=== PATIENT | female | born 1960 | race African-American/Black ===

== ENCOUNTER 2017-11-27 12:01 | Inpatient (IN) ==
[2017-11-27] MEDS ORDERED: Ketorolac Inj 30 MG/ML (IVP) Vial IV.PUSH ONE (13:24)
[2017-11-27] MEDS ORDERED: Sod Chloride 0.9% Inj 1,000 ML IV.SIG ONE (13:24)
--- NOTE | 2017-11-27 13:53 | ED ---
HPI General Chief complaint: Weakness Stated complaint: Back/Leg Pain and weakness Time Seen by Provider: 11/27/17 13:16 Source: patient Mode of arrival: ambulatory Limitations: no limitations History of Present Illness HPI Narrative: 57-year-old female presents to the emergency room for evaluation of generalized weakness that started 3 days ago. States she feels like she has no energy. She also has associated left lower back pain that radiates down her left lower extremity. States back pain is chronic. She has not been taking anything for her symptoms. Patient also complains of intermittent left-sided chest pain that she last experienced this morning. She denies upper or lower extremity paresthesias, saddle anesthesia, or loss of bowel bladder control. She has history of hypertension and anemia. She was started on a diuretic a few days ago, just prior to onset of weakness patient does not remember the name of the diuretic. She does smoke cigarettes. MD Complaint: generalized weakness and lack of energy Onset (ago): day(s) Duration: constant Location: generalized Migration: none Severity: moderate Relieving factors: none Exacerbating factors: movement and exertion Context: new medication Associated symptoms: chest pain Related Data Home Medications Medication Instructions Recorded Confirmed lisinopril 20 mg PO DAILY 11/27/17 11/27/17 Allergies Allergy/AdvReac Type Severity Reaction Status Date / Time No Known Allergies Allergy Verified 11/27/17 13:36 Review of Systems ROS: all other systems reviewed are negative [facility] Medical History Medical History Anemia (Acute) HTN (hypertension) (Acute) Social History Social History Substance History: No History of Abuse Second Hand Smoke Exposure: No Smoking Status: Never smoker How Often Do You Have a Drink Containing Alcohol: Never Immunization History Tetanus Immunization: Unsure Exam Narrative Exam Narrative: GENERAL: Well-nourished, well-developed female in no acute distress. Afebrile. Ambulatory. SKIN: Focused skin assessment warm/dry. HEAD: Normocephalic. EYES: No scleral icterus. No injection or drainage. NECK: Supple, trachea midline. No JVD or lymphadenopathy. CARDIOVASCULAR: Regular rate and rhythm without murmurs, gallops, or rubs. RESPIRATORY: Breath sounds equal bilaterally. No accessory muscle use. GASTROINTESTINAL: Abdomen soft, non-tender, nondistended. MUSCULOSKELETAL: No cyanosis, or edema. BACK: Nontender without obvious deformity. No CVA tenderness. Tenderness to palpation of the left lower lumbar region. Positive straight leg raise. Course Initial Documented Vital Signs Temperature 98 F 11/27/17 12:04 Pulse Rate 79 11/27/17 12:04 Respiratory Rate 18 11/27/17 12:04 Blood Pressure 111/53 L 11/27/17 12:04 Pulse Oximetry 98 11/27/17 12:04 Last Documented Vital Signs Temperature 98 F 11/27/17 12:04 Pulse Rate 79 11/27/17 12:04 Respiratory Rate 18 11/27/17 12:04 Blood Pressure 111/53 L 11/27/17 12:04 Pulse Oximetry 99 11/27/17 13:24 Medical Decision Making CAMILO Attestation CAMILO supervised visit: Yes Attestation: I, Dr. Elliott, have reviewed the advance practice practitioner's documentation and am in agreement, met with the patient face to face, made the diagnosis, and the medical decision making was done by me. *My assessment and Findings: Electrolyte abnormality vs. ACS vs. anemia vs. dehydration vs. rhabdomyolysis 57yo F with HTN, HLD presents to the ED with c/o generalized weakness and intermittent left sided chest pain for 1 week. Said it is achy and lasts seconds at a time. Moderate severity. Nonradiating. +Nausea. Denies any sob , vomiting, abdominal pain, focal weakness or numbness. 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 +Cig smoker. Denies any significant family history of cardiac disease. Also complains of generalized cramping to me. Will do labs, EKG, CXR and likely admit to chest pain center. She is currently chest pain free. Last episode was this morning. Labs reviewed , no leukocytosis. H/H normal. BUN/creatinine is elevated at 24/2.21. This is new compared to her last BUN/creatinine. But her last BUN/creatinine was from 2007. CPK normal. CXR negative. Will admit for RODOLFO and chest pain work up. MDM Narrative Medical decision making narrative: 57-year-old female presents to the emergency room for evaluation of generalized weakness that started a few days ago. Symptoms started shortly after she was started on the diuretic. Patient also reports intermittent left-sided chest pain that last occurred this morning. She has several risk factors for CAD. IV access established basic labs obtained. Patient given 1 L of fluids and Toradol for exacerbation of acute on chronic sciatica. CBC is unremarkable. CMP only shows elevation of creatinine 2.21. Patient denies any history of kidney failure. Troponin is less than 0.02. EKG was reviewed by my attending physician. Given patient's history of acute kidney injury, she will be admitted. Patient understands and agrees to plan. I spoke to Dr. Allan who agrees to accept this patient to his service. Medical Screen Exam Complete: Yes Emergency Medical Condition: Yes Differential Diagnosis Differential Diagnosis: Weakness, CAD, anemia, electrolyte abnormality, dehydration Lab Data Lab results reviewed: Yes I reviewed the patient's lab results. Result diagrams: 11/27/17 14:20 11/27/17 14:20 Lab Results 11/27/17 11/27/17 11/27/17 Range/Units 14:20 14:20 14:20 WBC 7.9 (4.0-11.0) th/mm3 RBC 4.52 (4.00-5.30) mil/mm3 Hgb 14.4 (11.6-15.3) gm/dL Hct 43.3 (35.0-46.0) % MCV 95.9 (80.0-100.0) fL MCH 32.0 (27.0-34.0) pg MCHC 33.3 (32.0-36.0) % RDW 13.1 (11.6-17.2) % Plt Count 288 (150-450) th/mm3 MPV 8.3 (7.0-11.0) fL Neut % (Auto) 46.5 (16.0-70.0) % Lymph % (Auto) 47.8 H (9.0-44.0) % Harlan % (Auto) 4.3 (0.0-8.0) % Eos % (Auto) 1.0 (0.0-4.0) % Baso % (Auto) 0.4 (0.0-2.0) % Neut # (Auto) 3.7 (1.8-7.7) th/mm3 Lymph # (Auto) 3.8 (1.0-4.8) th/mm3 Harlan # (Auto) 0.3 (0.0-0.9) th/mm3 Eos # (Auto) 0.1 (0.0-0.4) th/mm3 Baso # (Auto) 0.0 (0.0-0.2) th/mm3 WBC Differential . Differential Comment Auto diff final Sodium 137 (136-145) meq/L Potassium 4.3 (3.5-5.1) meq/L Chloride 100 (98-107) meq/L Carbon Dioxide 26.1 (21.0-32.0) meq/L Anion Gap 11 (5-15) meq/L BUN 24 H (7-18) mg/dL Creatinine 2.21 H (0.50-1.00) mg/dL Estimated GFR 27 L (>89) mL/min Random Glucose 127 H (74-106) mg/dL Calcium 9.2 (8.5-10.1) mg/dL Total Bilirubin 0.6 (0.2-1.0) mg/dL AST 18 (15-37) U/L ALT 28 (10-53) U/L Alkaline Phosphatase 62 (45-117) U/L Total Creatine Kinase 88 Cancelled (26-192) U/L Troponin I Less than 0.02 L (0.02-0.05) ng/mL Total Protein 7.7 (6.4-8.2) g/dL Albumin 4.1 (3.4-5.0) g/dL Imaging Data Radiologist's impression: Chest X-Ray 11/27/17 13:49 CONCLUSION: Negative for acute process ECG Data EKG Prior to Arrival: No Attestation: I personally reviewed and interpreted this ECG as follows: Interpretation: NSR 66bpm. Normal axis. HI interval 171ms. LVH. No significant ST elevation or depression. Discharge Plan Discharge Disposition Patient Disposition: 30 Still Patient Discharge Condition Condition: Stable Physicians Team ED Provider: Juliane Elliott ED Midlevel Provider: Prachi Salguero Primary Care Provider: Yoni Vallejo Rxs /Orders / Referrals /Forms Prescriptions: No Action lisinopril 20 mg Tablet 20 mg PO DAILY RF: 0 Status ED Status: With Doctor
--- NOTE | 2017-11-27 14:18 | XR ---
EXAM DATE: 11/27/2017 2:15 PM EDT AGE/SEX: 57 years / Female INDICATIONS: Chest pain. CLINICAL DATA: This is the patient's initial encounter. Patient reports that signs and symptoms have been present for 3 days and indicates a pain score of 7/10. MEDICAL/SURGICAL HISTORY: Hypertension. None. [place] [facility] [place]. . FINDINGS: A single AP view of the chest demonstrates the lungs to be symmetrically aerated without evidence of mass, infiltrate or effusion. The cardiomediastinal contours are unremarkable. Osseous structures a re intact. CONCLUSION: Negative for acute process Electronically signed by: Perry Rios MD 11/27/2017 2:17 PM EDT
[2017-11-27 14:27] LABS: Baso % (Auto) 0.4 % (0.0-2.0); Eos # (Auto) 0.1 th/mm3 (0.0-0.4); Hematocrit 43.3 % (35.0-46.0); Hemoglobin 14.4 gm/dL (11.6-15.3); Lymph # (Auto) 3.8 th/mm3 (1.0-4.8); Lymph % (Auto) 47.8 % (9.0-44.0); Mean Corpuscular HGB Conc 33.3 % (32.0-36.0); Mean Corpuscular Volume 95.9 fL (80.0-100.0); Mean Platelet Volume 8.3 fL (7.0-11.0); Mono # (Auto) 0.3 th/mm3 (0.0-0.9); Mono % (Auto) 4.3 % (0.0-8.0); Neut # (Auto) 3.7 th/mm3 (1.8-7.7); Neut % (Auto) 46.5 % (16.0-70.0); Platelet Count 288 th/mm3 (150-450); Red Blood Count 4.52 mil/mm3 (4.00-5.30); Red Cell Distribution Width 13.1 % (11.6-17.2); White Blood Count 7.9 th/mm3 (4.0-11.0)
[2017-11-27 14:57] LABS: Alanine Aminotransferase 28 U/L (10-53); Albumin 4.1 g/dL (3.4-5.0); Alkaline Phosphatase 62 U/L (45-117); Anion Gap 11 meq/L (5-15); Aspartate Aminotransferase 18 U/L (15-37); Blood Urea Nitrogen 24 mg/dL (7-18); Calcium 9.2 mg/dL (8.5-10.1); Carbon Dioxide 26.1 meq/L (21.0-32.0); Chloride 100 meq/L (98-107); Glomerular Filtration Rate 27 mL/min (>89); Glucose,Random 127 mg/dL (74-106); Sodium 137 meq/L (136-145); Total Protein 7.7 g/dL (6.4-8.2)
[2017-11-27 15:03] LABS: Creatine Kinase 88 U/L (26-192); Potassium 4.3 meq/L (3.5-5.1)
[2017-11-27 16:11] LABS: Bacteria,Urine Rare /hpf; Bilirubin,Urine Negative (Negative); Clarity,Urine Cloudy (Clear); Color,Urine Yellow (Yellw/Straw); Glucose,Urine (UA) Negative (Negative); Hyaline Casts,Urine 137 /lpf (0-3); Leukocyte Esterase,Urine Trace (Negative); Mucus,Urine Few /lpf (Occasional); Nitrite,Urine Negative (Negative); Specific Gravity,Urine 1.012 (1.002-1.035); Squamous Epithelial Cell,Urine 12 /hpf (0-5)
[2017-11-27] MEDS ORDERED: Acetaminophen 325 MG Tablet PO PRN (16:30)
[2017-11-27] MEDS ORDERED: LORazepam 1 MG Tablet PO PRN (16:33)
[2017-11-27] MEDS ORDERED: Haloperidol Inj 5 MG/ML Ampul IV.PUSH PRN (16:33)
--- NOTE | 2017-11-27 16:42 | P.HPIM ---
History of Present Illness Primary Care Physician: [facility] Chief Complaint: Weakness, chest pain History of Present Illness: The patient is a 57-year-old female with past medical history of hypertension and hyperlipidemia who is presenting to the hospital with weakness and chest pain. The patient states that she has felt weak for the past 2-3 days. She says the weakness is generalized. She says she had diarrhea last week that lasted for about 3 days. The diarrhea has resolved. She was nauseous earlier but is currently hungry. She states she has been drinking water. She says she was started on a water pill recently. She denies any pain on urination. The patient says that starting last week she had twinges of left-sided chest pain from time to time. She went to her primary care doctor who performed an EKG which was reportedly normal. The patient does not currently have chest pain at this moment. Discussed with family at the bedside. Inpatient Certification: I certify that the inpatient services were ordered in accordance with Medicare regulations governing the order. This includes certification that hospital inpatient services are reasonable and necessary and in the case of services not specified as inpatient-only under 42 CFR 419.22(n), that they are appropriately provided as inpatient services in accordance to with the 2-midnight benchmark under 43 CFR 412.3(e) Estimated Total Length of Stay (Days): 2 Plans for Post Hospital Care: Home Review of Systems All other systems reviewed negative except as stated in HPI [facility] - History History Provided By: Patient - Medical History Medical History: Medical History (Last Updated 11/27/17 @ 16:39 by Dalton Allan DO) Anxiety Depression HTN (hypertension) Hyperlipidemia - Surgical History Surgical History: Surgical History (Last Updated 11/27/17 @ 16:39 by Dalton Allan DO) History of partial hysterectomy - Family History Family History: Family History (Last Updated 11/27/17 @ 16:40 by Dalton Allan DO) Other Pulmonary embolism - Tobacco History Second Hand Smoke Exposure: No Tobacco Use In Past 30 Days: Yes Smoking Status: Current every day smoker (The patient smokes half a pack daily) - Alcohol History How Often Do You Have a Drink Containing Alcohol: 4 or more times a week - Immunization History Tetanus Immunization: Unsure Medications and Allergies Active Medications: Active Medications Acetaminophen (Tylenol) 650 mg PO Q4H PRN PRN Reason: Temp > 100.4 Alprazolam (Xanax) 0.5 mg PO Q8H PRN PRN Reason: ANXIETY Flumazenil (Romazecon Inj) 0.2 mg IV.PUSH Q1M PRN PRN Reason: OVERSEDATION Haloperidol Lactate (Haldol Inj) 1 mg IV.PUSH Q15M PRN PRN Reason: for severe agitation Heparin Sodium (Porcine) (Heparin Inj) 5,000 units SQ Q8H DUNG Sodium Chloride (Ns Inj) 1,000 mls @ 100 mls/hr IV.CONT .Q10H DUNG Lorazepam (Ativan) 2 mg PO Q2H PRN PRN Reason: for CIWA 11-14 Lorazepam (Ativan Inj) 2 mg IV.PUSH Q1H PRN PRN Reason: for CIWA 15-20 Lorazepam (Ativan Inj) 2 mg IV.PUSH Q15M PRN PRN Reason: for CIWA > 20 Lorazepam (Ativan) 1 mg PO Q4H PRN PRN Reason: for CIWA 8-10 Sodium Chloride (Ns Flush) 2 ml IV.FLUSH PRN PRN PRN Reason: FLUSH AFTER USING IV ACCESS Allergies Allergy/AdvReac Type Severity Reaction Status Date / Time No Known Allergies Allergy Verified 11/27/17 13:36 Home Medications Medication Instructions Recorded Confirmed Type lisinopril 20 mg PO DAILY 11/27/17 11/27/17 History Exam Vital signs: Vital Signs 11/27/17 12:04 11/27/17 13:24 11/27/17 16:26 Temperature 98 F 98.7 F Pulse Rate 79 69 Respiratory Rate 18 18 Blood Pressure 111/53 L 120/77 Pulse Oximetry 98 99 96 Intake & Output 11/26/17 11/27/17 11/27/17 18:59 06:59 18:59 Weight 68.039 kg Narrative: GENERAL: Well-nourished, well-developed female in no acute distress. SKIN: Focused skin assessment warm/dry. HEAD: Normocephalic. EYES: No scleral icterus. No injection or drainage. NECK: Supple, trachea midline. No JVD or lymphadenopathy. CARDIOVASCULAR: Regular rate and rhythm without murmurs, gallops, or rubs. RESPIRATORY: Breath sounds equal bilaterally. No accessory muscle use. GASTROINTESTINAL: Abdomen soft, non-tender, nondistended. MUSCULOSKELETAL: Left chest wall pain reproducible upon palpation. No cyanosis, or edema. NEURO: No gross deficits. Results - Labs CBC & Chem 7: 11/27/17 14:20 11/27/17 14:20 Labs: Short CBC 11/27/17 Range/Units 14:20 WBC 7.9 (4.0-11.0) th/mm3 Hgb 14.4 (11.6-15.3) gm/dL Hct 43.3 (35.0-46.0) % Plt Count 288 (150-450) th/mm3 BMP 11/27/17 14:20 Sodium 137 Potassium 4.3 Chloride 100 Carbon Dioxide 26.1 BUN 24 H Creatinine 2.21 H Calcium 9.2 Cardiac Enzymes 11/27/17 11/27/17 Range/Units 14:20 14:20 Total Creatine Kinase 88 Cancelled (26-192) U/L Troponin I Less than 0.02 L (0.02-0.05) ng/mL Liver Function 11/27/17 Range/Units 14:20 Total Bilirubin 0.6 (0.2-1.0) mg/dL AST 18 (15-37) U/L ALT 28 (10-53) U/L Alkaline Phosphatase 62 (45-117) U/L Albumin 4.1 (3.4-5.0) g/dL Urine 11/27/17 Range/Units 15:30 Urine Color Yellow (Yellw/Straw) Urine Clarity Cloudy H (Clear) Urine pH 5.0 (5.0-8.5) Ur Specific [place] 1.012 (1.002-1.035) Urine Protein Negative (Neg-Trace) mg/dL Urine Glucose (UA) Negative (Negative) mg/dL - Imaging Impressions Chest X-Ray 11/27/17 13:49 CONCLUSION: Negative for acute process Caprini VTE Risk Assessment Caprini VTE Risk Assessment: Moderate/High Risk (score >= 2) Caprini Risk Assessment Model: Point Value = 1 Point Value = 2 Point Value = 3 Point Value = 5 Age 41-60 Minor surgery BMI > 25 kg/m2 Swollen legs Varicose veins or History of unexplained or recurrent spontaneous Oral contraceptives or hormone replacement Sepsis (< 1 month) Serious lung disease, including pneumonia (< 1 month) Abnormal pulmonary function Acute myocardial infarction Congestive heart failure (< 1 month) History of inflammatory bowel disease Medical patient at bed rest Age 61-74 Arthroscopic surgery Major open surgery (> 45 min) Laparoscopic surgery (> 45 min) Malignancy Confined to bed (> 72 hours) Immobilizing plaster cast Central venous access Age >= 75 History of VTE Family history of VTE Factor V Leiden Prothrombin [id number] Lupus anticoagulant Anticardiolipin antibodies Elevated serum homocysteine Heparin-induced thrombocytopenia Other congenital or acquired thrombophilia Stroke (< 1 month) Elective arthroplasty Hip, pelvis, or leg fracture Acute spinal cord injury (< 1 month) Prophylaxis Regimen: Total Risk Factor Score Risk Level Prophylaxis Regimen 0-1 Low Early ambulation 2 Moderate Order ONE of the following: *Sequential Compression Device (SCD) *Heparin 5000 units SQ BID 3-4 Higher Order ONE of the following medications: *Heparin 5000 units SQ TID *Enoxaparin/Lovenox 40 mg SQ daily (WT < 150 kg, CrCl > 30 mL/min) *Enoxaparin/Lovenox 30 mg SQ daily (WT < 150 kg, CrCl > 10-29 mL/min) *Enoxaparin/Lovenox 30 mg SQ BID (WT < 150 kg, CrCl > 30 mL/min) AND/OR *Sequential Compression Device (SCD) 5 or more Highest Order ONE of the following medications: *Heparin 5000 units SQ TID (Preferred with Epidurals) *Enoxaparin/Lovenox 40 mg SQ daily (WT < 150 kg, CrCl > 30 mL/min) *Enoxaparin/Lovenox 30 mg SQ daily (WT < 150 kg, CrCl > 10-29 mL/min) *Enoxaparin/Lovenox 30 mg SQ BID (WT < 150 kg, CrCl > 30 mL/min) AND *Sequential Compression Device (SCD) Assessment and Plan - Plan Acute renal failure Likely prerenal. The pt had diarrhea last week. She also is on a diuretic, but is unable to recall which one. She is also on lisinopril. -IVFs. -hold lisinopril and diuretic. -Will need home med list to further evaluate meds that can contribute. -avoid nephrotoxins and follow BMP. Left sided chest pain Reproducible on exam. CXR and initial trop negative. EKG unremarkable. -telemetry. -trend trops. -pain control as needed. Alcohol use The pt endorses drinking beer and vodka but was unable to quantify. -CIWA protocol. -cessation instruction. Nicotine abuse The pt smokes half a pack daily. -cessation instruction. Hyperglycemia Possibly a stress reaction. -follow BMP. PPx: Heparin
[2017-11-27] MEDS: Sod Chloride 0.9% Inj 1,000 ML IV.CONT SCH (19:37)
[2017-11-27] MEDS: Heparin - SQ 10,000 UNITS/ML Vial SQ SCH (19:37)
[2017-11-27] MEDS: ALPRAZolam 0.5 MG Tablet PO PRN (23:41)
[2017-11-28] MEDS: Heparin - SQ 10,000 UNITS/ML Vial SQ SCH ×3 (00:36→16:13)
[2017-11-28] MEDS: Sod Chloride 0.9% Inj 1,000 ML IV.CONT SCH ×2 (05:42→11:35)
[2017-11-28 07:04] LABS: Baso % (Auto) 0.6 % (0.0-2.0); Eos # (Auto) 0.1 th/mm3 (0.0-0.4); Eos % (Auto) 1.8 % (0.0-4.0); Hemoglobin 12.7 gm/dL (11.6-15.3); Lymph % (Auto) 67.4 % (9.0-44.0); Mean Corpuscular HGB Conc 33.4 % (32.0-36.0); Mean Corpuscular Hemoglobin 32.1 pg (27.0-34.0); Mean Corpuscular Volume 96.3 fL (80.0-100.0); Mean Platelet Volume 8.5 fL (7.0-11.0); Mono # (Auto) 0.2 th/mm3 (0.0-0.9); Mono % (Auto) 3.9 % (0.0-8.0); Neut # (Auto) 1.6 th/mm3 (1.8-7.7); Neut % (Auto) 26.3 % (16.0-70.0); Platelet Count 245 th/mm3 (150-450); Red Blood Count 3.95 mil/mm3 (4.00-5.30); White Blood Count 5.9 th/mm3 (4.0-11.0)
[2017-11-28 07:37] LABS: Alanine Aminotransferase 24 U/L (10-53); Albumin 3.3 g/dL (3.4-5.0); Alkaline Phosphatase 59 U/L (45-117); Anion Gap 9 meq/L (5-15); Aspartate Aminotransferase 10 U/L (15-37); Blood Urea Nitrogen 19 mg/dL (7-18); Calcium 8.3 mg/dL (8.5-10.1); Carbon Dioxide 26.6 meq/L (21.0-32.0); Chloride 106 meq/L (98-107); Glomerular Filtration Rate 54 mL/min (>89); Glucose,Random 107 mg/dL (74-106); Potassium 3.7 meq/L (3.5-5.1); Sodium 142 meq/L (136-145); Total Protein 6.3 g/dL (6.4-8.2)
[2017-11-28 08:28] LABS: Eosinophils 2 % (0-4); Lymphocytes 66 % (9-44); Metamyelocytes 1 % (0-1); Monocytes 1 % (0-8); Myelocytes 1 % (0-0); Platelet Estimate Normal (Normal); Platelet Morphology Normal (Normal); RBC Morphology Normal (Normal)
--- NOTE | 2017-11-28 10:08 | P.PNIM ---
Subjective Interval history: Patient seen and examined this morning. Afebrile vital signs stable. No acute events overnight. Patient reports that she is at this time feeling better. Denies any nausea or vomiting. Denies any chest pain or shortness breath. Her flank pain is improving. Her abdominal pain is improving. She is happy about the news that her kidney function has also improved. She is no longer feeling as dehydrated she previously had felt. At this time will continue the IV fluids her BUN and creatinine. Patient is in agreement with the plan of care Physical Exam Vital signs: Vital Signs 11/27/17 12:04 11/27/17 13:24 11/27/17 16:26 Temperature 98 F 98.7 F Pulse Rate 79 69 Respiratory Rate 18 18 Blood Pressure 111/53 L 120/77 Pulse Oximetry 98 99 96 11/27/17 19:40 11/27/17 20:00 11/27/17 21:42 Temperature 98.4 F Pulse Rate 72 Respiratory Rate 18 18 18 Blood Pressure 121/71 Pulse Oximetry 11/28/17 00:00 11/28/17 04:00 11/28/17 08:00 Temperature 97.2 F L 97.1 F L 97.7 F Pulse Rate 69 61 60 Respiratory Rate 18 18 16 Blood Pressure 162/83 H 133/68 147/91 H Pulse Oximetry 99 97 99 11/28/17 09:40 Temperature Pulse Rate Respiratory Rate 16 Blood Pressure Pulse Oximetry Intake & Output 11/27/17 11/28/17 11/28/17 18:59 06:59 18:59 Intake Total 1000 / 1000 600 / 600 Balance 1000 / 1000 600 / 600 Weight 68.039 kg 69.2 kg Intake: IV 1000 / 1000 NS Inj 1,000 ML @ 100 mls/hr IV 1000 / 1000 .CONT .Q10H DUNG Rx#:[id number] Oral 600 / 600 Other: # Voids 1 Date of Last Bowel Movement 11/28/17 # Bowel Movements 1 Weight On Admission 69 kg Narrative: GEN: Well-developed, well-nourished patient. No acute distress. CV: Regular rate and rhythm without obvious murmurs LUNGS: Clear to auscultation bilaterally. Normal respiratory effort. No wheezes , rales, rhonchi. GI: Soft, nontender, nondistended. No palpable masses. Bowel sounds WNL. EXT: No edema. NEURO/PSYCH: Afocal. Awake, alert, and oriented x3. Appropriate insight and judgment. Results - Labs CBC & Chem 7: 11/28/17 05:49 11/28/17 05:49 Laboratory Results - last 24 hr 11/27/17 11/27/17 11/27/17 14:20 14:20 14:20 WBC 7.9 RBC 4.52 Hgb 14.4 Hct 43.3 MCV 95.9 MCH 32.0 MCHC 33.3 RDW 13.1 Plt Count 288 MPV 8.3 Prelim Diff (Auto) Neut % (Auto) 46.5 Lymph % (Auto) 47.8 H Baxter % (Auto) 4.3 Eos % (Auto) 1.0 Baso % (Auto) 0.4 Neut # (Auto) 3.7 Lymph # (Auto) 3.8 Baxter # (Auto) 0.3 Eos # (Auto) 0.1 Baso # (Auto) 0.0 WBC Differential . Seg Neuts % (Manual) Lymphocytes % (Manual) Monocytes % (Manual) Eosinophils % (Manual) Metamyelocytes % (Man) Myelocytes % (Man) Abs Neuts (Manual) Differential Comment Auto diff final Platelet Estimate Platelet Morphology RBC Morphology Sodium 137 Potassium 4.3 Chloride 100 Carbon Dioxide 26.1 Anion Gap 11 BUN 24 H Creatinine 2.21 H Estimated GFR 27 L Random Glucose 127 H Calcium 9.2 Total Bilirubin 0.6 AST 18 ALT 28 Alkaline Phosphatase 62 Total Creatine Kinase 88 Cancelled Troponin I Less than 0.02 L Total Protein 7.7 Albumin 4.1 Urine Color Urine Clarity Urine pH Ur Specific [place] Urine Protein Urine Glucose (UA) Urine Ketones Urine Occult Blood Urine Nitrate Urine Bilirubin Urine Urobilinogen Ur Leukocyte Esterase Urine RBC Urine WBC Ur Squamous Epith Cells Urine Bacteria Hyaline Casts Granular Casts Waxy Casts Urine Mucus Micro UA Comment Ur Microscopic Review Urine Culture Comments 11/27/17 11/27/17 11/28/17 15:30 20:04 05:49 WBC 5.9 RBC 3.95 L Hgb 12.7 Hct 38.0 MCV 96.3 MCH 32.1 MCHC 33.4 RDW 13.0 Plt Count 245 MPV 8.5 Prelim Diff (Auto) Slide review pending Neut % (Auto) 26.3 Lymph % (Auto) 67.4 H Baxter % (Auto) 3.9 Eos % (Auto) 1.8 Baso % (Auto) 0.6 Neut # (Auto) 1.6 L Lymph # (Auto) 4.0 Baxter # (Auto) 0.2 Eos # (Auto) 0.1 Baso # (Auto) 0.0 WBC Differential Manual diff final Seg Neuts % (Manual) 29 Lymphocytes % (Manual) 66 H Monocytes % (Manual) 1 Eosinophils % (Manual) 2 Metamyelocytes % (Man) 1 Myelocytes % (Man) 1 H Abs Neuts (Manual) 1.8 Differential Comment . Platelet Estimate Normal Platelet Morphology Normal RBC Morphology Normal Sodium Potassium Chloride Carbon Dioxide Anion Gap BUN Creatinine Estimated GFR Random Glucose Calcium Total Bilirubin AST ALT Alkaline Phosphatase Total Creatine Kinase Troponin I Less than 0.02 L Total Protein Albumin Urine Color Yellow Urine Clarity Cloudy H Urine pH 5.0 Ur Specific [place] 1.012 Urine Protein Negative Urine Glucose (UA) Negative Urine Ketones Negative Urine Occult Blood Small H Urine Nitrate Negative Urine Bilirubin Negative Urine Urobilinogen Less than 2 Ur Leukocyte Esterase Trace H Urine RBC 2 Urine WBC 3 Ur Squamous Epith Cells 12 Urine Bacteria Rare H Hyaline Casts 137 Granular Casts 1 Waxy Casts 4 Urine Mucus Few H Micro UA Comment Culture not ind Ur Microscopic Review Not Reportable Urine Culture Comments Culture not ind 11/28/17 05:49 WBC RBC Hgb Hct MCV MCH MCHC RDW Plt Count MPV Prelim Diff (Auto) Neut % (Auto) Lymph % (Auto) Baxter % (Auto) Eos % (Auto) Baso % (Auto) Neut # (Auto) Lymph # (Auto) Baxter # (Auto) Eos # (Auto) Baso # (Auto) WBC Differential Seg Neuts % (Manual) Lymphocytes % (Manual) Monocytes % (Manual) Eosinophils % (Manual) Metamyelocytes % (Man) Myelocytes % (Man) Abs Neuts (Manual) Differential Comment Platelet Estimate Platelet Morphology RBC Morphology Sodium 142 Potassium 3.7 Chloride 106 Carbon Dioxide 26.6 Anion Gap 9 BUN 19 H Creatinine 1.23 H Estimated GFR 54 L Random Glucose 107 H Calcium 8.3 L D Total Bilirubin 0.4 AST 10 L ALT 24 Alkaline Phosphatase 59 Total Creatine Kinase Troponin I Less than 0.02 L Total Protein 6.3 L D Albumin 3.3 L D Urine Color Urine Clarity Urine pH Ur Specific [place] Urine Protein Urine Glucose (UA) Urine Ketones Urine Occult Blood Urine Nitrate Urine Bilirubin Urine Urobilinogen Ur Leukocyte Esterase Urine RBC Urine WBC Ur Squamous Epith Cells Urine Bacteria Hyaline Casts Granular Casts Waxy Casts Urine Mucus Micro UA Comment Ur Microscopic Review Urine Culture Comments - Imaging Impressions Chest X-Ray 11/27/17 13:49 CONCLUSION: Negative for acute process Assessment and Plan - Assessment (1) RODOLFO (acute kidney injury) Code(s): N17.9 - Acute kidney failure, unspecified Status: Acute (2) Alcohol abuse Code(s): F10.10 - Alcohol abuse, uncomplicated Status: Acute - Plan Acute renal failure Likely prerenal. The pt had diarrhea last week. She also is on a diuretic, but is unable to recall which one. She is also on lisinopril. -IVFs. -hold lisinopril and diuretic. -Will need home med list to further evaluate meds that can contribute. -avoid nephrotoxins and follow BMP. Left sided chest pain Reproducible on exam. CXR and initial trop negative. EKG unremarkable. -telemetry. -trend trops: Negative -pain control as needed. Alcohol use The pt endorses drinking beer and vodka but was unable to quantify. -CIWA protocol. -cessation instruction. Nicotine abuse The pt smokes half a pack daily. -cessation instruction. -Nicotine patch Hyperglycemia Possibly a stress reaction. -follow BMP. PPx: Heparin Code Status: Full code Discharge Planning: Anticipate discharge home tomorrow
[2017-11-28] MEDS: Tolterodine Tartrate LA 2 MG Capsule PO SCH (11:34)
--- NOTE | 2017-11-28 16:16 | ECG ---
Date Performed: 11/27/2017 Time Performed: 13:55:18 PTAGE: 57 years EKG: Sinus rhythm MODERATE VOLTAGE CRITERIA FOR LVH, CONSIDER NORMAL VARIANT NONSPECIFIC T-WAVE ABNORMALITY Since the previous tracing, no significant change noted BORDERLINE ECG PREVIOUS TRACING : 06/30/2014 07.02 DOCTOR: Sid Gordillo Interpretating Date/Time 11/28/2017 16:14:06
[2017-11-28] MEDS ORDERED: TRIFLUOPERAZINE PO SCH (21:00)
[2017-11-28] MEDS ORDERED: Lisinopril 20 MG Tablet PO SCH (21:00)
[2017-11-28] MEDS: ALPRAZolam 0.5 MG Tablet PO PRN (21:33)
[2017-11-29] MEDS: Sod Chloride 0.9% Inj 1,000 ML IV.CONT SCH ×2 (01:08→11:37)
[2017-11-29] MEDS: Heparin - SQ 10,000 UNITS/ML Vial SQ SCH ×2 (01:09→08:07)
[2017-11-29 07:21] LABS: Hematocrit 37.8 % (35.0-46.0); Mean Corpuscular HGB Conc 34.5 % (32.0-36.0); Mean Corpuscular Hemoglobin 32.8 pg (27.0-34.0); Mean Corpuscular Volume 95.1 fL (80.0-100.0); Mean Platelet Volume 8.4 fL (7.0-11.0); Platelet Count 237 th/mm3 (150-450); Red Blood Count 3.98 mil/mm3 (4.00-5.30); Red Cell Distribution Width 12.6 % (11.6-17.2); White Blood Count 6.4 th/mm3 (4.0-11.0)
[2017-11-29 07:38] LABS: Calcium 8.8 mg/dL (8.5-10.1); Carbon Dioxide 26.3 meq/L (21.0-32.0); Potassium 3.8 meq/L (3.5-5.1)
[2017-11-29] MEDS: Tolterodine Tartrate LA 2 MG Capsule PO SCH (08:06)
[2017-11-29] MEDS ORDERED: traZODone 100 MG Tablet PO SCH (09:00)
--- NOTE | 2017-11-29 09:12 | P.PNIM ---
Subjective Interval history: in no acute distress. overall doing fine and says that she's ready to go home. no chest pain, vomiting or diarrhea. afebrile. Physical Exam Vital signs: Vital Signs 11/28/17 09:40 11/28/17 12:00 11/28/17 16:00 Temperature 97.9 F 98.1 F Pulse Rate 66 76 Respiratory Rate 16 16 16 Blood Pressure 164/82 H 176/95 H Pulse Oximetry 97 99 11/28/17 20:00 11/29/17 00:00 11/29/17 04:00 Temperature 97.6 F 97.4 F L 97.4 F L Pulse Rate 67 63 51 L Respiratory Rate 16 16 16 Blood Pressure 177/95 H 127/69 131/62 Pulse Oximetry 98 100 Intake & Output 11/28/17 11/29/17 11/29/17 18:59 06:59 18:59 Intake Total 2580 / 2580 1500 / 1500 1000 / 1000 Balance 2580 / 2580 1500 / 1500 1000 / 1000 Weight 70.5 kg Intake: IV 1000 / 1000 1000 / 1000 1000 / 1000 NS Inj 1,000 ML @ 100 mls/hr IV 1000 / 1000 1000 / 1000 .CONT .Q10H DUNG Rx#:[id number] Oral 1580 / 1580 500 / 500 Other: # Voids 9 4 Date of Last Bowel Movement 11/28/17 # Bowel Movements 1 - Constitutional no acute distress - Routine Respiratory Exam Present: CTA bilaterally - Routine Cardiovascular Exam Present: RRR - Routine Abdominal Exam Present: soft - Routine Extremities Exam Comments: no pedal edema. - Routine Neurological Exam Present: alert, oriented X3 Results - Labs CBC & Chem 7: 11/29/17 06:40 11/29/17 06:40 Laboratory Results - last 24 hr 11/29/17 11/29/17 06:40 06:40 WBC 6.4 RBC 3.98 L Hgb 13.0 Hct 37.8 MCV 95.1 MCH 32.8 MCHC 34.5 RDW 12.6 Plt Count 237 MPV 8.4 Sodium 140 Potassium 3.8 Chloride 105 Carbon Dioxide 26.3 Anion Gap 9 BUN 15 Creatinine 0.88 Estimated GFR 80 L Random Glucose 117 H Calcium 8.8 Assessment and Plan - Assessment (1) RODOLFO (acute kidney injury) Code(s): N17.9 - Acute kidney failure, unspecified Status: Acute (2) Alcohol abuse Code(s): F10.10 - Alcohol abuse, uncomplicated Status: Acute - Plan Acute renal failure- resolved. Likely prerenal. -hold lisinopril and diuretic and start on Norvasc. -avoid nephrotoxins and follow BMP. Left sided chest pain CXR and serial trop negative. EKG unremarkable. Alcohol use The pt endorses drinking beer and vodka but was unable to quantify. -CIWA protocol. -cessation instruction. Nicotine abuse The pt smokes half a pack daily. -cessation instruction. -Nicotine patch Hyperglycemia Possibly a stress reaction. Hypertension - will stop lisinopril and diuretic will be reduced and will be started on Amlodipine. - f/u with pcp- and this was d/w the patient. PPx: Heparin Discharge Planning: dc home today. see med list. f/u; pcp. d/w the patient.
--- NOTE | 2017-11-29 09:22 | P.DS ---
Date of admission: 11/27/17 16:15 Primary care physician: Yoni Robertson Brief History from admission: The patient is a 57-year-old female with past medical history of hypertension and hyperlipidemia who is presenting to the hospital with weakness and chest pain. The patient states that she has felt weak for the past 2-3 days. She says the weakness is generalized. She says she had diarrhea last week that lasted for about 3 days. The diarrhea has resolved. She was nauseous earlier but is currently hungry. She states she has been drinking water. She says she was started on a water pill recently. She denies any pain on urination. The patient says that starting last week she had twinges of left-sided chest pain from time to time. She went to her primary care doctor who performed an EKG which was reportedly normal. The patient does not currently have chest pain at this moment. Discussed with family at the bedside. DS: Diagnosis - Discharge Diagnosis (1) RODOLFO (acute kidney injury) Status: Acute (2) Alcohol abuse Status: Acute DS: Medications - Discharge Medications Prescriptions: amlodipine 5 mg PO DAILY #30 tab hydrochlorothiazide 25 mg PO DAILY 30 Days #30 tab nicotine 1 patch TRANSDERMAL DAILY 70 Days each DS: Summary Hospital Course: patient was admitted with RODOLFO and chest pain. she was started on IV fluid. her renal function improved. lisinopril will be discontinued and HCTZ will be reduced and she will be started on Amlodipine. her serial troponin were negative and chest pain resolved. otherwise the course in the hospital was uneventful.she will have af/u with her PCP as outpatient. - Time Spent with Patient Total time spent providing and/or coordinating discharge services: Less than 30 minutes - Quality: VTE Deep Vein Thrombosis/Pulmonary Embolism Present on Admission: Yes Exam Vital signs: Vital Signs 11/28/17 09:40 11/28/17 12:00 11/28/17 16:00 Temperature 97.9 F 98.1 F Pulse Rate 66 76 Respiratory Rate 16 16 16 Blood Pressure 164/82 H 176/95 H Pulse Oximetry 97 99 11/28/17 20:00 11/29/17 00:00 11/29/17 04:00 Temperature 97.6 F 97.4 F L 97.4 F L Pulse Rate 67 63 51 L Respiratory Rate 16 16 16 Blood Pressure 177/95 H 127/69 131/62 Pulse Oximetry 98 100 Intake & Output 11/28/17 11/29/17 11/29/17 18:59 06:59 18:59 Intake Total 2580 / 2580 1500 / 1500 1000 / 1000 Balance 2580 / 2580 1500 / 1500 1000 / 1000 Weight 70.5 kg Intake: IV 1000 / 1000 1000 / 1000 1000 / 1000 NS Inj 1,000 ML @ 100 mls/hr IV 1000 / 1000 1000 / 1000 .CONT .Q10H DUNG Rx#:[id number] Oral 1580 / 1580 500 / 500 Other: # Voids 9 4 Date of Last Bowel Movement 11/28/17 # Bowel Movements 1 - Constitutional no acute distress - Routine Respiratory Exam Present: CTA bilaterally - Routine Cardiovascular Exam Present: RRR - Routine Abdominal Exam Present: soft - Routine Extremities Exam Comments: no pedal edema. - Routine Neurological Exam Present: alert, oriented X3 Results Procedures completed during hospitalization: none. Labs on day of discharge: Labs from last 24 hours 11/29/17 11/29/17 06:40 06:40 WBC 6.4 RBC 3.98 L Hgb 13.0 Hct 37.8 MCV 95.1 MCH 32.8 MCHC 34.5 RDW 12.6 Plt Count 237 MPV 8.4 Sodium 140 Potassium 3.8 Chloride 105 Carbon Dioxide 26.3 Anion Gap 9 BUN 15 Creatinine 0.88 Estimated GFR 80 L Random Glucose 117 H Calcium 8.8 - Impressions ITS Impressions Chest X-Ray 11/27/17 13:49 CONCLUSION: Negative for acute process Discharge Plan - Discharge Disposition Patient Disposition: 01 Discharge Home - Discharge Condition Condition: Stable - Discharge Order Discharge Orders: Discharge Order (Routine); Ordered 11/29/17 Ordered By: Pameal Tubbs - Physicians Team Primary Care Provider: Yoni Vallejo Attending Provider: Pamela Tubbs Other Providers: Yoni Vallejo
== END 2017-11-29 10:59 | disposition home or self-care (01) ==
LOC: NEPD 12:01 → NEDA 16:15 → N05 21:45
PROVIDERS: ADMIT Internal Medicine; ATTEND Internal Medicine